=== PATIENT | female | born 1975 | race Caucasian/White ===

== ENCOUNTER 2018-08-10 10:18 | Emergency (ER) | payer SELFPAY ==
--- NOTE | 2018-08-10 12:31 | RAD REPORT ---
EXAM DESCRIPTION: CT - Abdomen Pelvis Wo Contrast - 08/10/2018 12:18 pm CLINICAL HISTORY: Abdominal pain. ?stone COMPARISON: No comparisons TECHNIQUE: CT imaging of the abdomen and pelvis was performed without contrast. Solid organ, bowel a nd vascular assessment is limited due to lack of IV and oral contrast. All CT scans are performed using dose optimization technique as appropriate and may include automated exposure control or mA/KV adjustment according to patient size. FINDINGS: The lower lung [place] are clear. The liver, spleen, pancreas, adrenal glands are within normal limits for a limited non-contrast exami nation. 4 mm stone is present in the proximal right ureter to the right of the L3 vertebral body resu lting mild right hydronephrosis. Additional punctate caliceal stones are present bilaterally. No bowel obstruction, free air, free fluid or abscess. The appendix is normal. The osseous structures are within normal limits. IMPRESSION: 4 mm stone is present proximal right ureter resulting in mild right hydronephrosis. Bilateral punctate caliceal renal calculi also noted. A limited non-contrast examination was performed as detailed.
[2018-08-10 12:45] LABS: Absolute Lymphocytes (CBC) 1.4 K/uL (0.7-4.9); Absolute Monocytes 0.2 K/uL (0.1-1.3); Absolute Neutrophil 7.4 K/uL (1.8-8.0); Basophils % 0.5 % (0-1.3); Eosinophils % 0.1 % (0-4.4); Hematocrit 40.5 % (36.0-45.0); Lymphocytes % 15.6 % (15.3-44.8); Monocytes % 2.4 % (3.3-12.3); RBC Red Blood Cell Count 4.68 M/uL (3.86-4.86)
[2018-08-10 13:05] LABS: ALT/SGPT 18 U/L (12-78); AST/SGOT 13 U/L (15-37); Albumin 3.9 g/dL (3.4-5.0); Alkaline Phosphatase 65 U/L (45-117); BUN Blood Urea Nitrogen 10 mg/dL (7-18); Bicarbonate 23 mmol/L (21-32); Bilirubin Direct 0.2 mg/dL (0-0.2); Bilirubin Total 0.7 mg/dL (0.2-1.0); Glucose Level 147 mg/dL (74-106); Lipase 156 U/L (73-393); Potassium 4.3 mmol/L (3.5-5.1); Protein, Total 7.5 g/dL (6.4-8.2); Sodium Level 139 mmol/L (136-145); Troponin (Emerg Dept Use Only) < 0.02 ng/mL (0.0-0.045)
--- NOTE | 2018-08-10 13:14 | ER ---
Nurse's Notes [facility] Name: Carla Mas Age: 42 yrs Sex: Female : 1975 Arrival Date: 08/10/2018 Time: 10:22 Bed 25 Private MD: out of town, doctor Diagnosis: Calculus of kidney and ureter Presentation: 08/10 10:28 Presenting complaint: Patient states: right flank pain that radiates to the RLQ started sv today after drinking coffee. Transition of care: patient was not received from another setting of care. Onset of symptoms was August 10, 2018. Care prior to arrival: Medication(s) given: Motrin. 10:28 Method Of Arrival: Ambulatory sv 10:28 Acuity: COLTON 4 sv 10:59 Risk Assessment: Do you want to hurt yourself or someone else? Patient reports no tw2 desire to harm self or others. Initial Sepsis Screen: Does the patient meet any 2 criteria? No. Patient's initial sepsis screen is negative. Does the patient have a suspected source of infection? No. Patient's initial sepsis screen is negative. Triage Assessment: 11:00 General: Appears in no apparent distress. Behavior is. 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 - Social history:: Smoking status: Patient/guardian denies using alcohol, street drugs, The patient lives with family. - Ebola Screening: : Patient denies travel to an Ebola-affected area in the 21 days before illness onset. - Family history:: not pertinent. Screenin:59 Abuse screen: Denies threats or abuse. Nutritional screening: No deficits noted. tw2 Tuberculosis screening: No symptoms or risk factors identified. Fall Risk None identified. Assessment: 10:58 Reassessment: pt ambulates to restroom at this time to collect urine sample. tw2 11:00 General: Appears in no apparent distress. slender, Behavior is calm. Pain: Complains of tw2 pain in abdomen. Neuro: Level of Consciousness is awake, alert, obeys commands, Oriented to person, place, time, situation. Cardiovascular: Heart tones S1 S2 Patient's skin is warm and dry. Respiratory: Airway is patent Breath sounds are clear bilaterally. GI: Abdomen is flat, Bowel sounds present X 4 quads. Reports lower abdominal pain, upper abdominal pain. : No signs and/or symptoms were reported regarding the genitourinary system. EENT: No signs and/or symptoms were reported regarding the EENT system. Derm: No signs and/or symptoms reported regarding the dermatologic system. Musculoskeletal: Range of motion: intact in all extremities. 11:30 Reassessment: Patient appears in no apparent distress at this time. No changes from tw2 previously documented assessment. Patient and/or family updated on plan of care and expected duration. Pain level reassessed. Patient is alert, oriented x 3, equal unlabored respirations, skin warm/dry/pink. 11:56 Reassessment: Dr. Davalos at bedside at this time. tw2 12:39 Reassessment: Patient appears in no apparent distress at this time. No changes from tw2 previously documented assessment. Patient and/or family updated on plan of care and expected duration. Pain level reassessed. Patient is alert, oriented x 3, equal unlabored respirations, skin warm/dry/pink. Vital Signs: 10:30 BP 141 / 92; Pulse 66; Resp 18; Temp 98.4; Pulse Ox 100% ; Weight 63.5 kg; Height 5 ft. sv 4 in. (162.56 cm); Pain 0/10; 11:30 BP 136 / 78; Pulse 66; Resp 17; Pulse Ox 98% on R/A; tw2 12:38 BP 135 / 71; Pulse 70; Resp 17; Pulse Ox 99% on R/A; tw2 10:30 Body Mass Index 24.03 (63.50 kg, 162.56 cm) sv ED Course: 10:22 Patient arrived in ED. dl4 10:23 out of town, doctor is Private Physician. dl4 10:29 Triage completed. sv 10:31 Arm band placed on. sv 10:53 Bed in low position. Call light in reach. Adult w/ patient. Pulse ox on. NIBP on. tw2 10:55 Rikki Davalos MD is Attending Physician. ma2 10:56 Boone, Minda, RN is Primary Nurse. tw2 11:20 Inserted saline lock: 22 gauge in right antecubital area, using aseptic technique. tw2 Blood collected. 12:[address] jg6 12:17 CT completed. Patient tolerated procedure well. Patient moved to CT via wheelchair. jg6 Patient moved back from CT. 12:22 CT Abd/Pelvis - Without Cont In Process Unspecified. EDMS 13:14 Randolph Quiroga MD is Referral Physician. ma2 13:26 Awaiting: COMPLETION OF IV FLUIDS PRIOR TO DISCHARGE. tw2 14:16 No provider procedures requiring assistance completed. IV discontinued, intact, tw2 bleeding controlled, No redness/swelling at site. Pressure dressing applied. Administered Medications: 13:35 Drug: NS 0.9% 1000 ml Route: IV; Rate: 1 bolus; Site: left antecubital; tw2 14:07 Follow up: Response: No adverse reaction; IV Status: Order to discontinue infusion; IV tw2 Intake: 500ml ; pt would like to leave states "i just have things to do i will drink lots of water at home" Intake: 14:07 IV: 500ml; Total: 500ml. tw2 Outcome: 13:14 Discharge ordered by . ma2 14:16 Patient left the ED. tw2 14:16 Discharged to home ambulatory, with friend. tw2 14:16 Condition: stable 14:16 Discharge instructions given to patient, friend, Instructed on discharge instructions, follow up and referral plans. no drinking with medication, no driving heavy equipment, medication usage, Demonstrated understanding of instructions, follow-up care, medications, Prescriptions given X 2. Signatures: Dispatcher [employer] EDIA Maryse Barbosa RN RN sv Wise, Tara, RN RN tw2 Rikki Davalos MD MD ma2 Yanelis Navarrog6 Remington Bojorquez dl4 Corrections: (The following items were deleted from the chart) 10:31 10:30 BP 141 / 92; Pulse 66bpm; Resp 18bpm; Pulse Ox 100%; sv sv
--- NOTE | 2018-08-10 13:15 | EDPHYS ---
Physician Documentation [facility] Name: Carla Mas Age: 42 yrs Sex: Female : 1975 Arrival Date: 08/10/2018 Time: 10:22 Bed 25 Private MD: out of town, doctor ED Physician Rikki Davalos HPI: 08/10 13:11 This 42 yrs old Female presents to ER via Ambulatory with complaints of Low ma2 Back Pain. 13:11 The patient presents with pain that is acute. The symptoms are located in the low back. ma2 The pain does not radiate. 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 - Social history:: Smoking status: Patient/guardian denies using alcohol, street drugs, The patient lives with family. - Ebola Screening: : Patient denies travel to an Ebola-affected area in the 21 days before illness onset. - Family history:: not pertinent. ROS: 13:12 Constitutional: Negative for fever, chills, and weight loss, Cardiovascular: Negative ma2 for chest pain, palpitations, and edema, Respiratory: Negative for shortness of breath, cough, wheezing, and pleuritic chest pain. 13:12 Back: Positive for flank pain, Negative for injury or acute deformity, decreased range of motion, pain at rest. 13:12 All other systems are negative. Exam: 13:12 Constitutional: This is a well developed, well nourished patient who is awake, alert, ma2 and in no acute distress. Chest/axilla: Normal chest wall appearance and motion. Nontender with no deformity. No lesions are appreciated. Cardiovascular: Regular rate and rhythm with a normal S1 and S2. No gallops, murmurs, or rubs. Normal PMI, no JVD. No pulse deficits. Respiratory: Lungs have equal breath sounds bilaterally, clear to auscultation and percussion. No rales, rhonchi or wheezes noted. No increased work of breathing, no retractions or nasal flaring. Abdomen/GI: Soft, non-tender, with normal bowel sounds. No distension or tympany. No guarding or rebound. No evidence of tenderness throughout. Back: No spinal tenderness. No costovertebral tenderness. Full range of motion. Skin: Warm, dry with normal turgor. Normal color with no rashes, no lesions, and no evidence of cellulitis. MS/ Extremity: Pulses equal, no cyanosis. Neurovascular intact. Full, normal range of motion. Neuro: Awake and alert, GCS 15, oriented to person, place, time, and situation. Cranial nerves II-XII grossly intact. Motor strength 5/5 in all extremities. Sensory grossly intact. Cerebellar exam normal. Normal gait. Vital Signs: 10:30 BP 141 / 92; Pulse 66; Resp 18; Temp 98.4; Pulse Ox 100% ; Weight 63.5 kg; Height 5 ft. sv 4 in. (162.56 cm); Pain 0/10; 11:30 BP 136 / 78; Pulse 66; Resp 17; Pulse Ox 98% on R/A; tw2 12:38 BP 135 / 71; Pulse 70; Resp 17; Pulse Ox 99% on R/A; tw2 10:30 Body Mass Index 24.03 (63.50 kg, 162.56 cm) sv MDM: 10:56 Patient medically screened. ma2 13:12 Differential diagnosis: UTI, has 4 mm stone no hydro, has no uti no pain here declined ma2 pain medicine. Data reviewed: vital signs, nurses notes, lab test result(s), radiologic studies. Counseling: I had a detailed discussion with the patient and/or guardian regarding: the historical points, exam findings, and any diagnostic results supporting the discharge/admit diagnosis, the presence of at least one elevated blood pressure reading (>120/80) during this emergency department visit, the need for outpatient follow up. Response to treatment: the patient's symptoms have resolved after treatment. 08/10 11:25 Order name: Urine Dipstick--Ancillary (enter results) 08/10 11:25 Order name: Urine --Ancillary (enter results) 08/10 12:00 Order name: Basic Metabolic Panel; Complete Time: 13:10 [facility] 08/10 12:00 Order name: CBC with Diff; Complete Time: 13:10 [facility] 08/10 12:00 Order name: Creatinine for Radiology; Complete Time: 13:10 ut2 08/10 12:00 Order name: Hepatic Function; Complete Time: 13:10 08/10 11:12 Order name: Urine Dipstick-Ancillary (obtain specimen); Complete Time: 11:13 08/10 11:12 Order name: Urine Test (obtain specimen); Complete Time: 11:13 08/10 12:00 Order name: Lipase; Complete Time: 13:10 ut08/10 12:00 Order name: IV Saline Lock; Complete Time: 12:38 08/10 12:00 Order name: Labs collected and sent; Complete Time: 12:38 08/10 12:00 Order name: Troponin (emerg Dept Use Only); Complete Time: 13: ut08/10 12:00 Order name: CT Abd/Pelvis - Without Cont; Complete Time: 12:46 ma2 Administered Medications: 13:35 Drug: NS 0.9% 1000 ml Route: IV; Rate: 1 bolus; Site: left antecubital; tw2 14:07 Follow up: Response: No adverse reaction; IV Status: Order to discontinue infusion; IV tw2 Intake: 500ml ; pt would like to leave states "i just have things to do i will drink lots of water at home" Disposition: 08/10/18 13:14 Discharged to Home. Impression: Calculus of kidney and ureter. - Condition is Stable. - Discharge Instructions: Kidney Stones, Dietary Guidelines to Help Prevent Kidney Stones. - Prescriptions for Tylenol- Codeine #3 300-30 mg Oral Tablet - take 2 tablet by ORAL route every 6 hours As needed; 30 tablet. Flomax 0.4 mg Oral Capsule, Sust. Release 24 hr - take 1 capsule by ORAL route once daily 1/2 hour following the same meal each day; 30 capsule. - Work release form, Medication Reconciliation Form, Thank You Letter, Antibiotic Education, Prescription Opioid Use form. - Follow up: Randolph Quiroga MD; When: Tomorrow; Reason: Continuance of care. Signatures: Dispatcher [employer] Maryse Rodriguez RN RN sv Minda Boone RN RN tw2 Rikki Davalos MD MD ut2 Corrections: (The following items were deleted from the chart) 14:16 13:14 08/10/2018 13:14 Discharged to Home. Impression: Calculus of kidney and ureter. tw2 Condition is Stable. Forms are Medication Reconciliation Form, Thank You Letter, Antibiotic Education, Prescription Opioid Use. Follow up: Randolph Quiroga; When: Tomorrow; Reason: Continuance of care. ma2
[2018-08-10] MEDS ORDERED: NA CHLORIDE 0.9% 1,000 ML ONE (13:40)
[2018-08-10 15:16] LABS: Urine Blood 3+ (NEG); Urine Glucose TRACE (NEG); Urine Protein 2+ (NEG); Urine Specific Gravity >1.030 (1.005-1.030); Urine pH 5.5 (5.0-7.0)
== END 2018-08-10 14:16 | disposition home or self-care (01) ==
LOC: ER 10:18
DX: N20.2 Calculus of kidney with calculus of ureter (principal); Z87.442 Personal history of urinary calculi; Z88.3 Allergy status to other anti-infective agents
CPT/HCPCS: 36415; 74176; 80048; 80076; 81003; 81025; 83690; 84484; 85025; 96360; 99284; J7030